=== PATIENT | female | born 1965 | race Caucasian/White ===

== ENCOUNTER 2016-08-31 10:28 | Emergency (ER) | payer OTHER ==
[~2016-08-31] VITALS: Ht 160 cm; Wt 103.4 kg
[~2016-08-31 10:28] MED LIST: AMLODIPINE BES2.5 MG PO; ANTIVERT25 MG PO; ATENOLOL/CHLOR1 EAC2 PO; BENTYL20 MG PO; CELEBREX200 MG PO; CITALOPRAM HBR20 MG PO; CYMBALTA30 MG PO; IBUPROFEN800 MG PO; KLONOPIN0.5 M1 PO; LIDODERM 5% P1 PATCH TD; LOSARTAN-HCTZ1 EAC2 PO; MAGNESIUM CITR100 MG PO; NITROSTAT0.4 MG SL; OMEPRAZOLE40 M1 PO; SUPHEDRINE PE10 MG PO; TESSALON PERLE100 MG PO; VALIUM5 MG PO; ZOFRAN4 MG PO
[2016-08-31 11:20] LABS: HEMATOCRIT 41.7 % (36.0-46.0); MCHC 33.3 G/DL (30.0-36.0); MCV 93.1 FL (83-99); MEAN PLAT.VOLUME 9.9 uM^3 (9.5-12.4); PLATELET COUNT 320 K/uL (156-360); RBC DIS.WIDTH-CV 12.6 % (11.8-14.6); RBC DIS.WIDTH-SD 42.9 % (39-53); RED BLOOD COUNT 4.48 M/uL (3.80-5.20); WHITE BLOOD COUNT 9.4 K/uL (4.1-10.2)
[2016-08-31 11:35] LABS: ADD MIUA? NO; BILIRUBIN NEGATIVE; BLOOD NEGATIVE; COLOR YELLOW ((YELLOW)); GLUCOSE (STRIP) NEGATIVE; KETONES NEGATIVE; LEUKOCYTES NEGATIVE; NITRITE NEGATIVE; PROTEIN (STRIP) NEGATIVE; SPECIFIC GRAVITY 1.014 (1.000-1.030); UCUL ADDED? NO; UROBILINOGEN 0.2 MG/DL (0.2-1.0)
[2016-08-31 11:40] LABS: CHLORIDE 100 mEq/L (99-109); POTASSIUM 4.1 mEq/L (3.7-5.4); SODIUM 136 mEq/L (136-147)
[2016-08-31 11:42] LABS: GLUCOSE 93 mg/dL (70-99)
[2016-08-31 11:43] LABS: ANION GAP 8 MEQ/L (2-14)
[2016-08-31 11:44] LABS: TOTAL BILIRUBIN 0.3 mg/dL (0.0-1.0)
[2016-08-31 11:46] LABS: ALKALINE PHOSPHATASE 65 IU/L (3-129); GFR ESTIMATE (CALCULATED) > 59 mL/min/
[2016-08-31 11:47] LABS: UREA NITROGEN (BUN) 19 mg/dL (9-23)
[2016-08-31 11:55] LABS: QUANTITATIVE HCG < 4.0 MIU/ML
[2016-08-31] MEDS ORDERED: VALSARTAN-HCTZ1 EAC3 PO (12:37)
[2016-08-31] MEDS ORDERED: SPIRONOLACTONE25 MG PO (12:39)
[2016-08-31] MEDS ORDERED: ZOFRAN ODT4 MG PO (14:18)
[2016-08-31 14:36] VITALS: BP 120/74
== END 2016-08-31 14:37 | disposition home or self-care (01) ==
LOC: EME 10:28
DX: K52.9 Noninfective gastroenteritis and colitis, unspecified (principal); F32.9 Major depressive disorder, single episode, unspecified; I10 Essential (primary) hypertension; Z88.6 Allergy status to analgesic agent; Z88.1 Allergy status to other antibiotic agents; Z87.891 Personal history of nicotine dependence
CPT/HCPCS: 74177; 80053; 81003; 84702; 85027; 99281; 99285; J2765; J3010; J7120

== ENCOUNTER 2017-07-17 07:52 | Emergency (ER) | payer BC ==
[~2017-07-17] VITALS: Ht 162.6 cm; Wt 102.7 kg
[~2017-07-17 07:52] MED LIST changes: +SPIRONOLACTONE25 MG PO; +VALSARTAN-HCTZ1 EAC3 PO; +ZOFRAN ODT4 MG PO
[2017-07-17 08:49] LABS: HEMATOCRIT 40.1 % (36.0-46.0); HEMOGLOBIN 13.4 G/DL (11.9-15.5); MCH 30.2 PG (29.0-34.0); MCHC 33.4 G/DL (30.0-36.0); MCV 90.3 FL (83-99); PLATELET COUNT 342 K/uL (156-360); RBC DIS.WIDTH-CV 12.7 % (11.8-14.6); RBC DIS.WIDTH-SD 42.1 % (39-53); RED BLOOD COUNT 4.44 M/uL (3.80-5.20); WHITE BLOOD COUNT 8.8 K/uL (4.1-10.2)
[2017-07-17 09:02] LABS: CHLORIDE 101 mEq/L (99-109); SODIUM 140 mEq/L (136-147)
[2017-07-17 09:03] LABS: GLUCOSE 89 mg/dL (70-99)
[2017-07-17 09:07] LABS: CREATININE 0.8 mg/dL (0.6-1.3); GFR ESTIMATE (CALCULATED) > 59 mL/min/
[2017-07-17 09:08] LABS: UREA NITROGEN (BUN) 19 mg/dL (9-23)
[2017-07-17 09:11] LABS: TROP-I INTERPRETATION NEGATIVE; TROPONIN-I < 0.01 ng/mL (0.0-0.30)
[2017-07-17 11:40] LABS: TROP-I INTERPRETATION NEGATIVE; TROPONIN-I < 0.01 ng/mL (0.0-0.30)
[2017-07-17 12:07] VITALS: BP 105/72
== END 2017-07-17 12:18 | disposition home or self-care (01) ==
LOC: EME 07:52
PROVIDERS: Physician Assistant Medical
DX: R07.9 Chest pain, unspecified (principal); F41.0 Panic disorder [episodic paroxysmal anxiety]; I10 Essential (primary) hypertension; F32.9 Major depressive disorder, single episode, unspecified; K21.9 Gastro-esophageal reflux disease without esophagitis; J45.909 Unspecified asthma, uncomplicated; Z88.5 Allergy status to narcotic agent; Z88.1 Allergy status to other antibiotic agents; Z87.891 Personal history of nicotine dependence
CPT/HCPCS: 71046; 80048; 84484; 85027; 93005; 99281; 99284